=== PATIENT | female | born 1965 | race Caucasian/White ===

== ENCOUNTER 2016-09-28 15:54 | Emergency (ER) | payer MEDICAID ==
--- NOTE | 2016-09-28 17:33 | EDM.PDOC ---
ED HPI GENERAL MEDICAL PROBLEM - General Chief Complaint: General Stated Complaint: THIGH PAIN, WEAK, NIGHT SWEATS, RAPID PULSE Time Seen by Provider: 09/28/16 16:26 Source of Information: Reports: Patient, Family - History of Present Illness INITIAL COMMENTS - FREE TEXT/NARRATIVE: 51 y.o.[place] came to the ed with her family because she think she had a blood clot ih ner lower legs because she read at google "a sign of DVT is generalized body ache". She denies lower extremity pain, swelling, injuries etc. She had a CT Scan done in [facility] yesterday which showed Gall stones in her GB. she has occ shooting pain at her RUQ for several month. She asks if it is safe to drive to [facility]? Onset: Unknown/Unsure Onset Date: 09/18/16 Onset Time: 08:00 Duration: Day(s):, Intermittent, Waxing/Waning Location: Reports: Generalized Quality: Reports: Burning Severity: Mild Improves with: Reports: Rest Worsens with: Reports: Medication, Movement Context: Reports: Other (NO TRAUMA) Associated Symptoms: Reports: No Other Symptoms - Related Data Allergies Allergy/AdvReac Type Severity Reaction Status Date / Time No Known Allergies Allergy Verified 09/28/16 16:24 Home Meds: Home Meds Metoprolol Succinate [Toprol XL] 12.5 mg PO BEDTIME 09/28/16 [History] Metoprolol Succinate [Toprol XL] 25 mg PO DAILY 09/28/16 [History] Social & Family History - Tobacco Use Smoking Status *Q: Never Smoker - Caffeine Use Caffeine Use: Reports: Coffee - Recreational Drug Use Recreational Drug Use: No ED ROS GENERAL - Review of Systems Review Of Systems: See Below Constitutional: Reports: Other (GENERALIZED ACHE) HEENT: Reports: No Symptoms Respiratory: Reports: No Symptoms Cardiovascular: Reports: No Symptoms Endocrine: Reports: No Symptoms GI/Abdominal: Reports: No Symptoms : Reports: No Symptoms Musculoskeletal: Reports: No Symptoms Skin: Reports: No Symptoms Neurological: Reports: No Symptoms Psychiatric: Reports: No Symptoms Hematologic/Lymphatic: Reports: No Symptoms Immunologic: Reports: No Symptoms ED EXAM, GENERAL - Physical Exam Exam: See Below Exam Limited By: No Limitations General Appearance: Alert, WD/WN, Mild Distress Eye Exam: Bilateral Eye: Normal Inspection Ears: Normal External Exam Ear Exam: Bilateral Ear: Auricle Normal Nose: Normal Inspection, Normal Mucosa Throat/Mouth: Normal Inspection, Normal Lips Head: Atraumatic, Normocephalic Neck: Normal Inspection, Supple, Non-Tender Respiratory/Chest: No Respiratory Distress, Lungs Clear, Normal Breath Sounds Cardiovascular: Normal Peripheral Pulses, Regular Rate, Rhythm, No Edema Peripheral Pulses: 1+: Femoral (L), Femoral (R) GI/Abdominal: Normal Bowel Sounds, Tender (MINOR ruq OF ABDOMEN) (Female) Exam: Deferred Rectal (Female) Exam: Deferred Back Exam: Normal Inspection, Full Range of Motion Extremities: Normal Inspection, Normal Range of Motion, Non-Tender, No Pedal Edema, Other (MINOR WOUND EFT LOWER LEG.) Neurological: Alert, Oriented, CN II-XII Intact, Normal Cognition, Normal Gait, No Motor/Sensory Deficits Psychiatric: Normal Affect, Normal Mood Skin Exam: Warm, Dry, Intact, Normal Color, Rash (LOCALIZED RASH 2X2 CM LEFT LOWER LEG) Lymphatic: No Adenopathy Course - Vital Signs Text/Narrative:: 51 y.o.w.f. came to the ed with her family because she think she had a blood clot ih ner lower legs because she read at [employer] "a sign of DVT is generalized body ache". She denies lower extremity pain, swelling, injuries etc. She had a CT Scan done in [facility] yesterday which showed Gall stones in her GB. she has occ shooting pain at her RUQ for several month. She asks if it is safe to drive to [facility]? Pt had a complete Blood w/u yesterday at [place] which was all nl as per patient. PE: minor cellulitis 2x2 cm left lower ant leg. No pain, neg tri sign, CAP refill < 2 sec Labs/Imaging not indicated. US abdomen limited was recommended by his physician yesterday. Impression: Reassurance, GBD (as per [facility]. CT) Minor cellulitis Left lower leg. Gen body ach with sweating. Plan: D/C with F/U Last Recorded V/S: Last Vital Signs Temp 36.8 C 09/28/16 16:26 Pulse 94 09/28/16 17:40 Resp 18 09/28/16 16:26 BP 143/89 H 09/28/16 17:40 Pulse Ox 98 09/28/16 16:26 Departure - Departure Time of Disposition: 17:31 Disposition: Home, Self-Care 01 Condition: Good Clinical Impression: Gallstone Qualifiers: Cholecystitis acuity: chronic - Discharge Information Referrals: Efra Talavera MD [Primary Care Provider] - Forms: ED Department Discharge Additional Instructions: Please f/u with your PMD, Please come back to the ed if your symptoms get worse acutely
[2016-09-28 17:42] VITALS: BP 143/89
== END 2016-09-28 17:40 | disposition home or self-care (01) ==
LOC: FB.ED 15:54
DX: K80.80 Other cholelithiasis without obstruction (principal); L03.116 Cellulitis of left lower limb; Z79.899 Other long term (current) drug therapy
CPT/HCPCS: 99283